=== PATIENT | male | born 1975 | race Two or more races ===

== ENCOUNTER → 2023-09-02 | Emergency (ER) | payer OTHER ==
[~2023-09-02] VITALS: Ht 180.3 cm; Wt 90.7 kg
[~2023-09-02] MED LIST: KETOROLAC TROMETHAMINE 60 MG VIAL IM ONE; OxyCODONE HCL/APAP UD (PERCOCET) PO ONE
[2023-09-02 19:47] LABS: URINE APPEARANCE Clear; URINE BILIRRUBIN Negative (NEGATIVE); URINE BLOOD Negative; URINE COLOR Yellow; URINE GLUCOSE Negative (NEGATIVE); URINE LEUKOCYTE Negative; URINE NITRATE Negative; URINE PROTEIN Negative (NEGATIVE); URINE UROBILINOGEN 0.2 E.U./dl
[2023-09-02 19:50] LABS: URINE EPITHELIAL CELLS 2.7 uL (0.0-38.8); URINE WBC 6.7 uL (0.0-23.2)
[2023-09-02 19:57] LABS: HEMATOCRIT 40.7 % (39.0-48.0); MEAN CELL VOLUME 92.1 fL (80.0-100.00); MEAN CORPUSCULAR HEMOGLOBIN 31.6 pg (27.00-32.0); MEAN CORPUSCULAR HGB CONC 34.3 g/dl (32.0-36.0); PLATELET COUNT 256 K/uL (150-450); RED BLOOD COUNT 4.42 M/uL (4.00-6.00); RED CELL DISTRIBUTION WIDTH 14.6 % (11.5-14.5)
[2023-09-02 20:00] LABS: URINE BACTERIA 3.7 uL (0.0-1933); URINE RBC 1.5 uL (0.0-20.8)
[2023-09-02 20:05] LABS: PARTIAL THROMBOPLASTIN TIME 29.6 SECONDS (22.0-34.0); PROTHROMBIN TIME 10.5 SECONDS (9.0-11.5)
[2023-09-02 20:06] LABS: CALCIUM 8.8 mg/dL (8.5-10.1); CREATININE SERUM 0.7 mg/dL (0.70-1.30); GFR 119.37; POTASSIUM 4.21 mEq/L (3.5-5.1)
== END | disposition designated cancer center or children's hospital (05) ==
LOC: ER 16:43
PROVIDERS: General Practice
DX: S72.144A Nondisplaced intertrochanteric fracture of right femur, initial encounter for closed fracture (principal); W10.8XXA Fall (on) (from) other stairs and steps, initial encounter; Y93.89 Activity, other specified; Y92.59 Other trade areas as the place of occurrence of the external cause; Y99.9 Unspecified external cause status; M51.36 Other intervertebral disc degeneration, lumbar region